=== PATIENT | male | born 1980 | race Caucasian/White ===

== ENCOUNTER 2025-02-11 15:17 | Day surgery (SDC) | payer BC ==
[2025-02-11] MEDS ORDERED: BUPIVACAINE 0.5% VIAL IJ ONE (15:18)
[2025-02-11] MEDS ORDERED: LIDOCAINE HCL 1% 50 MG/5 ML VL IJ ONE (15:18)
[2025-02-11] MEDS ORDERED: methylPREDNISolone acetate IM ONE (15:18)
--- NOTE | 2025-02-11 20:05 | XRAY ---
Indication: Right knee injection. Intraoperative fluoroscopy provided for 24 seconds. Single digital spot image submitted for interpretation demonstrates contrast in right femur intercondylar notch. Correlate with intraoperative findings/report.
--- NOTE | 2025-02-12 09:18 | XRAY ---
24 seconds of fluoroscopy was used in surgery for a right intra-articular knee injection.
== END 2025-02-11 17:52 | disposition home or self-care (01) ==
LOC: SDC-PAIN 15:17
PROVIDERS: ATTEND Psychiatry & Neurology Pain Medicine
DX: M17.11 Unilateral primary osteoarthritis, right knee (principal)